=== PATIENT | female | born 1975 | race Caucasian/White ===

== ENCOUNTER 2019-11-10 13:56 | Emergency (ER) | payer OTHER ==
[~2019-11-10] VITALS: Ht 170.2 cm; Wt 59.0 kg
[2019-11-10 14:33] VITALS: BP 125/91
[2019-11-10] MEDS ORDERED: SINGULAIR 10 MG10 MG PO (14:37)
[2019-11-10] MEDS ORDERED: ALEVE220 M1 PO (14:37)
[2019-11-10] MEDS ORDERED: ZYRTEC10 M5 PO (14:37)
[2019-11-10 16:05] LABS: URINE BILIRUBIN NEGATIVE (Negative); URINE BLOOD TRACE (Negative); URINE CLARITY CLEAR; URINE COLOR YELLOW; URINE GLUCOSE-RANDOM NEGATIVE (Negative); URINE KETONES NEGATIVE (Negative); URINE LEUKOCYTES-REFLEX NEGATIVE (Negative); URINE PROTEIN NEGATIVE (Negative); URINE SPECIFIC GRAVITY 1.015 (1.005-1.030); URINE UROBILINOGEN 0.2 E.U./dl (0.2-1.0)
[2019-11-10 16:06] LABS: URINE NITRITE-REFLEX POSITIVE (Negative)
[2019-11-10 16:16] LABS: BACTERIA-REFLEX >30 Many /HPF (None Seen); MUCUS 0-3 Light strn/LPF (None Seen); SQUAMOUS >10 Many /LPF (0-3)
[2019-11-10 16:17] LABS: CASTS None Seen /LPF (None Seen); CRYSTALS None Seen /LPF (None Seen); URINE RBC 0-2 Rare /HPF (0-2); URINE WBC-REFLEX 6-15 Few /HPF (0-5)
[2019-11-10] MEDS ORDERED: CIPRO500 M1 PO (16:23)
== END 2019-11-10 16:37 | disposition home or self-care (01) ==
LOC: M.ERS 13:56
PROVIDERS: Physician Assistant
DX: N39.0 Urinary tract infection, site not specified (principal); J45.909 Unspecified asthma, uncomplicated

== ENCOUNTER → 2019-12-21 | Outpatient (CLI) | payer OTHER ==
[~2019-12-21] MED LIST: ALEVE220 M1 PO; CIPRO500 M1 PO; PROAIR HFA8.5 GM INH; SINGULAIR 10 MG10 MG PO; TAMIFLU75 MG PO; ZYRTEC10 M5 PO
== END ==
LOC: M.RAD 12-16 14:10 → M.ULTRA 10:30
DX: Z12.31 Encounter for screening mammogram for malignant neoplasm of breast (principal); N94.89 Other specified conditions associated with female genital organs and menstrual cycle; N88.8 Other specified noninflammatory disorders of cervix uteri

== ENCOUNTER 2019-12-25 10:52 | Emergency (ER) | payer OTHER ==
[~2019-12-25] VITALS: Ht 170.2 cm; Wt 62.6 kg
[~2019-12-25 10:52] MED LIST changes: -PROAIR HFA8.5 GM INH; -TAMIFLU75 MG PO
[2019-12-25] MEDS ORDERED: PROAIR HFA8.5 GM INH (11:26)
[2019-12-25 11:35] LABS: INFLUENZA A ANTIGEN Negative (Negative)
[2019-12-25] MEDS ORDERED: TAMIFLU75 MG PO (12:40)
[2019-12-25 13:08] VITALS: BP 116/79
== END 2019-12-25 13:09 | disposition home or self-care (01) ==
LOC: M.ERS 10:52
PROVIDERS: Emergency Medicine Emergency Medical Services
DX: J10.1 Influenza due to other identified influenza virus with other respiratory manifestations (principal); J45.909 Unspecified asthma, uncomplicated; Z20.828 Contact with and (suspected) exposure to other viral communicable diseases